=== PATIENT | male | born 1965 | race Caucasian/White ===

== ENCOUNTER 2018-11-15 23:27 | Emergency (ER) | payer SELFPAY ==
[2018-11-15] MEDS ORDERED: METHYLPREDNISOLONE PF 125MG/VIAL IM SCH (23:45)
[2018-11-15] MEDS ORDERED: KETOROLAC 60 MG/2 ML VIAL IM STA (23:56)
--- NOTE | 2018-11-15 23:59 | Emergency Department Record ---
History of Present Illness - General Chief complaint: Lower Extremity Pain Stated complaint: HIP PAIN Time Seen by Provider: 11/15/18 23:34 Source: Patient Mode of Arrival: Ambulatory Limitations: No limitations - History of Present Illness Initial comments: 53 yo male presents to ED for evaluation of right hip pain that worsened this morning around 5:00 AM. Patient reports that he "needs to have a replacement of his right hip", reports that he contacted Dr. Wloff around noon for an upcoming appointment. Patient denies new injury, fevers, chills, or redness to the area. Patient reports taking Tylenol (5:00 AM) and Motrin 400 mg (noon) for his pain without improvement. MD Complaint: Joint pain Onset/Timin -: Hour(s) Location: Right, Thigh History of Same: Yes Radiation: Distal Severity scale (1-10): 10 Quality: Burning, Stabbing Consistency: Constant Improves with: Nothing Worsens with: Walking, Weight bearing - Related Data Home Medications Medication Instructions Recorded Confirmed Last Taken Ascorbic Acid [Vitamin C] 1,000 mg PO DAILY 11/15/18 11/15/18 11/15/18 Atorvastatin Calcium [Lipitor] 10 mg PO QHS 11/15/18 11/15/18 11/15/18 Elviteg/Cob/Emtri/Tenof Alafen 400 mg PO DAILY 11/15/18 11/15/18 11/15/18 [Genvoya Tablet] Multivitamin [Multiple Vitamins] 1 each PO DAILY 11/15/18 11/15/18 11/15/18 Previous Rx's Medication Instructions Recorded Naproxen [Naprosyn] 500 mg PO Q12H #30 tab. 11/16/18 Allergies Allergy/AdvReac Type Severity Reaction Status Date / Time No Known Drug Allergies Allergy Verified 11/15/18 23:45 Travel Screening - Travel/Exposure Within Last 30 Days Have you traveled within the last 30 days?: No - Travel/Exposure Within Last Year Have you traveled outside the [place] in the last year?: No - Additonal Travel Details Have you been exposed to anyone with a communicable illness?: No - Travel Symptoms Symptom Screening: None Review of Systems Constitutional: Denies: Chills, Fever, Malaise, Night sweats Eyes: Denies: Eye discharge, Eye pain ENT: Denies: Congestion, Ear pain, Epistaxis Respiratory: Denies: Cough, Dyspnea Cardiovascular: Denies: Chest pain, Dyspnea on exertion Endocrine: Denies: Fatigue, Heat or cold intolerance Gastrointestinal: Denies: Abdominal pain, Nausea, Vomiting Genitourinary: Denies: Incontinence, Retention Musculoskeletal: Reports: Arthralgia. Denies: Back pain, Gout, Joint swelling Skin: Denies: Bruising, Change in color Neurological: Denies: Abnormal gait, Confusion, Headache, Seizure Psychiatric: Denies: Anxiety Hematological/Lymphatic: Denies: Anemia, Blood Clots Past Medical History - SOCIAL HISTORY Smoking Status: Never smoker Alcohol Use: None Drug Use: None - RESPIRATORY Hx Respiratory Disorders: No - CARDIOVASCULAR Hx Cardio Disorders: No - NEURO Hx Neuro Disorders: No Hx CVA: Yes (1999) - GI Hx GI Disorders: No - Hx Genitourinary Disorders: No Hx Kidney Stones: Yes (1999) - ENDOCRINE Hx Endocrine Disorders: No - MUSCULOSKELETAL Hx Musculoskeletal Disorders: Yes Hx Arthritis: Yes - PSYCH Hx Psych Problems: No Family Medical History Any Significant Family History?: Yes Hx Cancer: Father Hx Heart Disease: Mother, Grandparents Physical Exam - General General Appearance: Alert, Oriented x3, Cooperative, No acute distress, Other ( Smiling, on his mobile phone, converstional, no acute distress noted, appears comfortable on examination.) Limitations: No limitations - Head Head exam: Atraumatic, Normocephalic, Normal inspection Head exam detail: negative: Abrasion, Contusion, Suazo's sign, General tenderness, Hematoma, Laceration - Eye Eye exam: Normal appearance. negative: Conjunctival injection, Periorbital swelling, Periorbital tenderness, Scleral icterus - ENT Ear exam: negative: Auricular hematoma, Auricular trauma Nasal Exam: negative: Active bleeding, Discharge, Dried blood, Foreign body Mouth exam: negative: Drooling, Laceration, Muffled voice, Tongue elevation - Neck Neck exam: Normal inspection. negative: Meningismus, Tenderness - Respiratory Respiratory exam: Normal lung sounds bilaterally. negative: Rales, Respiratory distress, Rhonchi, Stridor - Cardiovascular Cardiovascular Exam: Regular rate, Normal rhythm, Normal heart sounds - GI/Abdominal GI/Abdominal exam: Soft. negative: Rebound, Rigid, Tenderness - Rectal Rectal exam: Deferred - exam: Deferred - Extremities Extremities exam: Tenderness, Other (TTP along the proximal, lateral femur and at the SI joint, no erythema present, no STS, no evidence for a septic joint is present on examination, strong DPP present.). negative: Calf tenderness, Pedal edema - Back Back exam: Denies: CVA tenderness (R), CVA tenderness (L) - Neurological Neurological exam: Alert, Normal gait, Oriented X3 - Psychiatric Psychiatric exam: Normal affect, Normal mood - Skin Skin exam: Normal color. negative: Abrasion Type of lesion: negative: abrasion Course Vital Signs 11/15/18 23:33 Temperature 98.0 F Pulse Rate 57 L Respiratory 16 Rate Blood Pressure 143/91 Pulse Ox 99 - Reevaluation(s) Reevaluation #1: 11/16/18 00:07 MAPS was reviewed (2) previous prescriptions were identified 10/21 for Hydrocodone 10 mg #30 Reevaluation #2: 11/16/18 00:51 Patient was reassessed, reports that his pain symptoms are greatly improved. Patient appears stable for discharge at this time on Naprosyn as directed. Disposition Disposition: Discharge Clinical Impression: Hip pain, right Disposition: Home, Self-Care Condition: (2) Stable Instructions: Arthralgia (ED) Additional Instructions: Return to ED if your symptoms worsen or if you have any concerns. Naprosyn as directed. Follow-up with Dr. Wolff in 3-5 days as directed. Prescriptions: Naproxen [Naprosyn] 500 mg PO Q12H #30 tab.dr Forms: Patient Portal Access Time of Disposition: 00:54 Quality - Quality Measures Quality Measures: N/A - Blood Pressure Screening Does Patient Have Any of the Following: No Blood Pressure Classification: Hypertensive Reading Systolic Measurement: 143 Diastolic Measurement: 91 Screening for High Blood Pressure: < First Hypertensive BP, F/U Documented > [ [id number]] First Hypertensive Follow-up Interventions: Referral to alternative/primary care provider.
== END 2018-11-16 01:01 | disposition home or self-care (01) ==
LOC: ER 23:27
DX: M25.552 Pain in left hip (principal); M79.651 Pain in right thigh
CPT/HCPCS: 96372; 99283; J1885; J2930